=== PATIENT | male | born 1965 | race Caucasian/White ===

== ENCOUNTER 2019-10-08 21:06 | Emergency (ER) | payer OTHER ==
[~2019-10-08] VITALS: Ht 170.2 cm; Wt 93.5 kg
[2019-10-08 22:13] LABS: BASOPHILS % 0.9 % (0.0-2.0); EOSINOPHILS % 2.1 % (0.0-5.0); HEMATOCRIT. 44.4 % (42.0-52.0); HEMOGLOBIN. 15.6 g/dL (14.0-18.0); LYMPHOCYTES % 34.6 % (20.0-50.0); MEAN CORPUSCULAR HEMOGLOBIN 32.4 pg (28.0-32.0); MEAN CORPUSCULAR VOLUME 92.4 fL (80.0-94.0); MEAN PLATELET VOLUME 9.1 fl (7.4-10.4); MONOCYTES % 10.9 % (2.0-8.0); NEUTROPHILS % 51.5 % (40.0-76.0); PLATELET 180 x1000/uL (130-400); RED CELL DISTRIBUTION WIDTH 12.7 % (11.6-14.6)
[2019-10-08 22:16] LABS: CHLORIDE 105 mEq/L (98-107)
[2019-10-08 22:18] LABS: INR 1.1; PROTHROMBIN TIME 11.5 sec (9.6-11.0)
[2019-10-08 22:20] LABS: ETHANOL BLOOD < 10 mg/dL
[2019-10-08 22:23] LABS: LDL CHOLESTEROL 199 mg/dL (5-100)
[2019-10-08] MEDS ORDERED: IOHEXOL-350 100 ML BOTTLE ONE (22:30)
[2019-10-08] MEDS ORDERED: ASPIRIN 81MG TABLET PO ONE (23:00)
[2019-10-08] MEDS ORDERED: HYDRALAZINE 20MG/ML VIAL IV ONE (23:30)
[2019-10-09] MEDS ORDERED: LORAZEPAM 2MG/ML CPJ IV ONE (01:45)
[2019-10-09 03:22] VITALS: BP 136/103
== END 2019-10-09 03:40 | disposition short-term general hospital (02) ==
LOC: ER 21:06 → CANBEDREQ 10-09 06:28
DX: I63.9 Cerebral infarction, unspecified (principal); R47.1 Dysarthria and anarthria; I10 Essential (primary) hypertension; Z88.8 Allergy status to other drugs, medicaments and biological substances
CPT/HCPCS: 36415; 70450; 70496; 71045; 80053; 80320; 82962; 83690; 83721; 83880; 84484; 85025; 85610; 85730; 86850; 86900; 86901; 93005; 96374; 99291; J0360; J2060; Q9967; Z7610; G0480